=== PATIENT | female | born 1975 | race American Indian/Alaskan Native ===

== ENCOUNTER 2018-01-15 09:17 | Emergency (ER) | payer OTHER ==
--- NOTE | 2018-01-15 10:25 | Emergency Department Report ---
Blank Doc - Documentation Documentation: Patient is a 42-year-old Female who is complaining of some vaginal spotting starting yesterday. Patient is approximately 8 weeks . Patient has had 1 previous miscarriage in the past. Patient states she has some dull suprapubic discomfort as well. She denies any nausea vomiting diarrhea at this time. Focused physical exam patient has a soft abdomen with minimal tenderness. Patient will have a urinalysis and a quant done as well as be taken for ultrasound. Patient is B+ for blood type and type and screen is not needed at this time.
[2018-01-15 10:50] LABS: Bilirubin,Urine NEG (Negative); Blood,Urine NEG (Negative); Color,Urine Yellow (Yellow); Mucus,Urine FEW /HPF; Protein,Urine <15 mg/dL mg/dL (Negative); Urobilinogen,Urine < 2.0 mg/dL (<2.0)
[2018-01-15 12:17] LABS: Basophils % (Auto) 0.3 % (0.0-1.8); Eosinophils % (Auto) 0.6 % (0.0-4.3); Hematocrit 38.8 % (30.3-42.9); Hemoglobin 12.6 gm/dl (10.1-14.3); Lymphocytes # (Auto) 1.6 K/mm3 (1.2-5.4); Lymphocytes % (Auto) 21.2 % (13.4-35.0); Mean Corpuscular HGB Conc 32 % (30-34); Mean Corpuscular Hemoglobin 27 pg (28-32); Mean Corpuscular Volume 85 fl (79-97); Monocytes # (Auto) 0.5 K/mm3 (0.0-0.8); Monocytes % (Auto) 6.3 % (0.0-7.3); Platelet Count 258 K/mm3 (140-440); Red Blood Count 4.59 M/mm3 (3.65-5.03); Red Cell Distribution Width 13.5 % (13.2-15.2)
--- NOTE | 2018-01-15 12:39 | Ultrasound Report ---
Ultrasound OB less than 14 weeks fetus Ultrasound OB transvaginal HISTORY: with vaginal bleeding. COMPARISON: None. TECHNIQUE: Transabdominal and transvaginal ultrasound with color doppler interrogation. FINDINGS: Uterus: The uterus is retroflexed and measures 12 x 7 x 8 cm. 2 uterine fibroids are identified. A 3.0 x 2.5 cm heterogeneous fibroid is noted in the uterine fundus. A 1.6 x 1.3 cm fibroid is noted in the anterior wall. Normal cervix. Endometrium: An intrauterine gestational sac is identified. A small pole measuring 3.7 mm is identified which correlates with a 6 weeks, 0 day . No heart rate is confidently identified at this time. A moderate subchorionic hemorrhage is noted along the inferior border of the gestational sac. Right ovary: 2.3 x 1.7 x 1.8 cm. Left ovary: 2.6 x 1.6 x 2.9 cm. A 1.6 cm corpus luteum cyst is suspected in the left ovary. No pelvic fluid or mass is identified. Normal color doppler interrogation. IMPRESSION: An intrauterine gestational sac containing a small pole is identified but no convincing heart tones on Doppler interrogation. This is concerning for demise. Close interval followup is recommended. Small uterine fibroids. Moderate subchorionic hemorrhage.
[2018-01-15 13:48] VITALS: BP 131/80
--- NOTE | 2018-01-15 13:52 | Emergency Department Report ---
ED HPI - General Chief complaint: Vaginal Bleeding Stated complaint: SPOTTING AND Time Seen by Provider: 01/15/18 10:21 Source: patient Mode of arrival: Ambulatory Limitations: No Limitations - History of Present Illness Initial comments: This is a 42-year-old female nontoxic, well nourished in appearance, no acute signs of distress presents to the ED with c/o of vaginal bleeding x1 day. Patient stated yesterday she noticed some spotting yesterday. Patient denies any abdominal or pelvic pain. Patient denies any vaginal discharge or foul odor. Patient denies any nausea, vomiting, chest pain, shortness of breathe, fever, chills, headache, stiff neck, numbness, tingling. Patient denies any urinary symptoms. Patient denies any allergies or PMH. Patient stated she is about 8 weeks and last ultrasound was done last month and was about 5 months . MD Complaint: vaginal bleeding -: days(s) (1) Radiation: none Severity scale (0 -10): 0 Improves with: none Worsens with: none Associated symptoms: vaginal bleeding. denies: nausea/vomiting, vaginal discharge, abdominal pain, dysuria, headache, vision changes, malaise, dysparuenia, rash, seizure, shortness of breath, syncope, weakness Vaginal bleeding: light :: Yes Number of weeks : 8 Pre- care: followed by OB - Related Data Allergies Allergy/AdvReac Type Severity Reaction Status Date / Time No Known Allergies Allergy Unverified 01/15/18 09:29 ED Review of Systems ROS: Stated complaint: SPOTTING AND Other details as noted in HPI Constitutional: denies: chills, fever Eyes: denies: eye pain, eye discharge, vision change ENT: denies: ear pain, throat pain Respiratory: denies: cough, shortness of breath, wheezing Cardiovascular: denies: chest pain, palpitations Endocrine: no symptoms reported Gastrointestinal: denies: abdominal pain, nausea, diarrhea Genitourinary: abnormal menses. denies: urgency, dysuria, discharge Musculoskeletal: denies: back pain, joint swelling, arthralgia Skin: denies: rash, lesions Neurological: denies: headache, weakness, paresthesias Psychiatric: denies: anxiety, depression Hematological/Lymphatic: denies: easy bleeding, easy bruising ED Past Medical Hx - Past Medical History Previous Medical History?: No - Surgical History Additional Surgical History: feet - Social History Smoking Status: Never Smoker Substance Use Type: None ED Physical Exam - General Limitations: No Limitations General appearance: alert, in no apparent distress - Head Head exam: Present: atraumatic, normocephalic - Eye Eye exam: Present: normal appearance Pupils: Present: normal accommodation - ENT ENT exam: Present: normal exam, mucous membranes moist - Neck Neck exam: Present: normal inspection, full ROM. Absent: tenderness, meningismus, lymphadenopathy - Respiratory Respiratory exam: Present: normal lung sounds bilaterally. Absent: respiratory distress, wheezes, rales, rhonchi, stridor, chest wall tenderness, accessory muscle use, decreased breath sounds, prolonged expiratory - Cardiovascular Cardiovascular Exam: Present: regular rate, normal rhythm, normal heart sounds. Absent: bradycardia, tachycardia, irregular rhythm, systolic murmur, diastolic murmur, rubs, gallop - GI/Abdominal GI/Abdominal exam: Present: soft, normal bowel sounds. Absent: distended, tenderness, guarding, rebound, rigid, diminished bowel sounds - Rectal Rectal exam: Present: deferred - Extremities Exam Extremities exam: Present: normal inspection, full ROM, normal capillary refill - Back Exam Back exam: Present: normal inspection, full ROM. Absent: tenderness, CVA tenderness (R), CVA tenderness (L), muscle spasm, paraspinal tenderness, vertebral tenderness, rash noted - Neurological Exam Neurological exam: Present: alert, oriented X3, normal gait - Psychiatric Psychiatric exam: Present: normal affect, normal mood - Skin Skin exam: Present: warm, dry, intact, normal color. Absent: rash ED Course Vital Signs 01/15/18 09:29 Temperature 99.3 F Pulse Rate 68 Respiratory 18 Rate Blood Pressure 115/54 O2 Sat by Pulse 100 Oximetry - Reevaluation(s) Reevaluation #1: 01/15/18 13:41 Patient is speaking in full sentences with no signs of distress noted. - Consultations Consultation #1: 01/15/18 13:41 Patient has been consulted with Michael Ashraf about patient history, physical exam, and labs/US report and examined and screened patient and agrees to ED plan of care. ED Medical Decision Making - Lab Data Result diagrams: 01/15/18 11:59 - Medical Decision Making This is a 42-year-old female presents with threatened miscarriage. Patient is stable and was examined by me and Dr. Franks. Dr. Colby has been consulted about patient history, physical exam, and US report and stated to discharge with follow-up for an outpatient D/C. Frank the patient stated has only spotting and no heavy vaginal bleeding. This is her patient and sees patient in the office. Normal abdominal exam. US OB obtained and dictated by the radiologist. Ua obtained. Quantative serum test obtained. Patient notified of the US report with no questions noted by the patient. Patient was referred to Follow-up with a [facility] after discharge or if symptoms worsen and continue return to emergency room as soon as possible. At time of discharge, the patient does not seem toxic or ill in appearance. No acute signs of distress noted. Patient agrees to discharge treatment plan of care. No further questions noted by the patient. Critical care attestation.: If time is entered above; I have spent that time in minutes in the direct care of this critically ill patient, excluding procedure time. ED Disposition Clinical Impression: Spontaneous miscarriage, demise Disposition: DC-01 TO HOME OR SELFCARE Is pt being admited?: No Does the pt Need Aspirin: No Condition: Stable Instructions: Spontaneous Miscarriage (ED), Intrauterine Demise (ED) Additional Instructions: Follow-up with a [facility] after discharge or if symptoms worsen and continue return to emergency room as soon as possible. Referrals: PRIMARY CARE, [Referring] - 3-5 Days
== END 2018-01-15 14:03 | disposition home or self-care (01) ==
LOC: ED 09:17
DX: O36.4XX0 Maternal care for intrauterine death, not applicable or unspecified (principal); O03.9 Complete or unspecified spontaneous abortion without complication; Z3A.08 8 weeks gestation of pregnancy
CPT/HCPCS: 36415; 76801; 76817; 81001; 84702; 85025; 86900; 86901; 99284

== ENCOUNTER 2018-01-17 07:58 | Day surgery (SDC) | payer OTHER ==
--- NOTE | 2018-01-17 09:04 | Short Stay Summary ---
Short Stay Documentation Date of service: 01/17/18 Narrative H&P: 42y/o @ 6 weeks ega with findings of embryonic demise. The patient denies passage of tissue or vaginal bleeding. She does not report any precipitating event for her miscarriage. - History Principal diagnosis: Missed Past Medical History: No medical history Past Surgical History: No surgical history Social history: single - Allergies and Medications Current Medications: Allergies No Known Allergies Allergy (Unverified 01/15/18 09:29) - Physical exam General appearance: no acute distress Integumentary: no rash HEENT: Atraumatic Lungs: Clear to auscultation Breasts: deferred Heart: Regular rate Gastrointestinal: normal Female Genitourinary: deferred Rectal Exam: deferred Extremities: no ischemia Neurological: Normal gait - Brief post op/procedure progress note Date of procedure: 01/17/18 Pre-op diagnosis: missed Post-op diagnosis: same Procedure: Suction dilatation and curettage Anesthesia: GETA Surgeon: MARY BETH STOKES Estimated blood loss: other (150 mL) Pathology: list (products of conception) Specimen disposition: to lab Condition: stable - Hospital course Hospital course: The patient was admitted the day of surgery and underwent a suction dilatation and curettage. Please see operative noted for details of surgery. Her postoperative course was uneventful. - Disposition Condition at discharge: Good Disposition: DC-01 TO HOME OR SELFCARE Short Stay Discharge Plan Activity: other (pelvic rest for 1 week) Diet: regular Additional Instructions: Patient may schedule follow-up with Dr. Stokes in 2 weeks Prescriptions: Ibuprofen [Motrin] 800 mg PO Q8HR PRN #60 tablet PRN Reason: Pain, Mild (1-3) oxyCODONE /ACETAMINOPHEN [Percocet 5/325] 1 tab PO Q6HR PRN #30 tablet PRN Reason: Pain
[2018-01-17] MEDS ORDERED: NARCAN 0.4 MG/1 ML IV PRN (09:42)
[2018-01-17] MEDS ORDERED: PERCOCET 5/325 PO PRN (09:42)
--- NOTE | 2018-01-17 09:42 | Anesthesia Consultation ---
Anesthesia Consult and Med Hx Date of service: 01/17/18 - Airway Anesthetic Teeth Evaluation: Good ROM Head & Neck: Adequate Mental/Hyoid Distance: Adequate Mallampati Class: Class II Intubation Access Assessment: Good - Pulmonary Exam CTA: Yes - Cardiac Exam Cardiac Exam: RRR - Pre-Operative Health Status ASA Pre-Surgery Classification: ASA1 Proposed Anesthetic Plan: General - Pre-Anesthesia Comment Pre-Anesthesia Comments: Patient tolerates >6 METs. No chest pain or SOB. No cold or flu. NO N/V. Exercises frequently. No difficulty with General Anesthesia in the past - Pulmonary Hx Smoking: No Hx Asthma: No - Cardiovascular System Hx Hypertension: No Hx Coronary Artery Disease: No - Central Nervous System Hx Neuromuscular Disorder: No Hx Seizures: No CVA: No - Gastrointestinal Hx Gastroesophageal Reflux Disease: No - Other Systems Hx Alcohol Use: No Hx Substance Use: No Hx Obesity: No
--- NOTE | 2018-01-17 09:42 | Anesthesia Day of Surgery ---
Anesthesia Day of Surgery - Day of Surgery Patient Examined: Yes Patient H&P Reviewed: Yes Patient is NPO: Yes
[2018-01-17] MEDS ORDERED: DILAUDID IV PRN ×2 (10:00)
[2018-01-17] MEDS ORDERED: VERSED IV NR (10:00)
[2018-01-17] MEDS ORDERED: LACTATED RINGERS 1,000 ML IV SCH (10:00)
[2018-01-17] MEDS ORDERED: DEMEROL IV PRN (10:00)
[2018-01-17] MEDS ORDERED: TYLENOL PO PRN (10:00)
[2018-01-17] MEDS ORDERED: TORADOL IV PRN (10:00)
[2018-01-17] MEDS ORDERED: ZOFRAN IV PRN (10:00)
[2018-01-17] MEDS ORDERED: DILAUDID ONE (10:30)
[2018-01-17] MEDS ORDERED: XYLOCAINE MPF 2% ONE (10:30)
[2018-01-17] MEDS ORDERED: DIPRIVAN 10 MG/ML IV ONE (10:31)
[2018-01-17] MEDS ORDERED: NACL 0.9% IR ONE (11:15)
[2018-01-17] MEDS ORDERED: TORADOL ONE (11:25)
[2018-01-17] MEDS ORDERED: ZOFRAN ONE (11:32)
--- NOTE | 2018-01-17 11:35 | Operative Report ---
Operative Report Operative Report: Date of surgery: 01/17/2018 Preoperative diagnosis: Missed Postoperative diagnosis: Same as above Procedure: Suction dilatation and curettage Surgeon: Keri Colby M.D. Anesthesia: Gen. endotracheal anesthesia Estimated blood loss: 150 mL Findings: Products of conception Indication: 42-year-old at approximately 6-7 weeks estimated gestational age with findings of an embryonic demise. Procedure: The patient was taken to the operating room and given general endotracheal anesthesia without complication. The patient is prepped and draped in a normal sterile fashion. A bivalve speculum was placed in the patient's vagina and a single-tooth tenaculums placed on the anterior lip of the cervix. The uterine cavity was then sounded. The cervical os was then dilated with graduated dilators. A number 7 Romanian curved cannula was placed to suction and found to be adequate. The cannula was then gently inserted into the dilated cervical os. Evacuation of the uterine contents were performed. Sharp curettage and endometrial surface was performed until cry was achieved. The cannula was then gently reinserted into the uterine cavity to evacuate any additional contents. After removal of the cannula there was no evidence of any active bleeding. The vaginal instruments were then removed atraumatically. The patient was then successfully extubated and taken to the recovery room in stable condition. All sponge laps and needle counts were correct 2. Pathology consisted of products of conception.
[2018-01-17] MEDS ORDERED: BENADRYL IV ONE (14:33)
[2018-01-17] MEDS ORDERED: BENADRYL ONE (14:39)
[2018-01-17 21:05] VITALS: BP 108/57
--- NOTE | 2018-01-18 07:29 | Post Anesthesia Evaluation ---
- Post Anesthesia Evaluation Patient Participated: Yes Airway Patent: Yes Stable Respiratory Function: Yes Nausea/Vomiting: No Temp > 96.8F: Yes Pain Manageable: Yes Adequeate Hydration: Yes Anesthesia Complications: No Block Receding Appropriately: Not Applicable Patient on Ventilator: No
== END 2018-01-17 07:59 | disposition home or self-care (01) ==
LOC: OR 07:58
PROVIDERS: ATTEND Obstetrics & Gynecology
DX: O02.1 Missed abortion (principal); Z79.899 Other long term (current) drug therapy
CPT/HCPCS: 59820; 88305; J1170; J1200; J1885; J2250; J2405; J2704; J7120